=== PATIENT | female | born 1990 | race Caucasian/White ===

== ENCOUNTER 2017-08-19 04:57 | Emergency (ER) | payer MEDICAID ==
[~2017-08-19] VITALS: Ht 154.9 cm; Wt 76.7 kg
[2017-08-19 05:04] VITALS: Ht 154.9 cm; Wt 76.7 kg
[2017-08-19 07:46] VITALS: BP 130/82
== END 2017-08-19 07:46 | disposition home or self-care (01) ==
LOC: ED 04:57
DX: H66.92 Otitis media, unspecified, left ear (principal); H60.92 Unspecified otitis externa, left ear; Z88.2 Allergy status to sulfonamides; Z88.8 Allergy status to other drugs, medicaments and biological substances